=== PATIENT | female | born 1990 | race African-American/Black ===

== ENCOUNTER 2018-05-16 01:10 | Emergency (ER) | payer BC, SELFPAY ==
[2018-05-16] MEDS ORDERED: Ondansetron ODT 4 MG TAB ONE (01:46)
[2018-05-16] MEDS ORDERED: Lidocaine Viscous Sol 2% 15 ml UD Cup ONE (01:57)
[2018-05-16] MEDS ORDERED: Mag-Al 1200 mg/1200 mg/30 ML UDCUP ONE (01:57)
[2018-05-16 03:03] LABS: Bilirubin Negative (Negative); Blood, Urine Negative (Negative); Clarity CLEAR (Clear); Glucose, Urine (Dipstick) Negative (Negative); Leukocyte Negative (Negative); Nitrite Negative (Negative); Protein, Urine (Dipstick) Negative (Neg-Trace); Specific Gravity, Urine 1.027 (1.002-1.036)
[2018-05-16 03:07] LABS: Pregnancy Test - Urine (BHCG) POSITIVE (Negative); Pregu Control Background? CLEAR/WHITE (CLR/WHITE); Pregu Control Bar Appear? YES (CONTROL BAR); Specific Gravity 1.027 (1.002-1.036)
== END 2018-05-16 03:58 | disposition home or self-care (01) ==
LOC: ERS 01:10
DX: O21.9 Vomiting of pregnancy, unspecified (principal); Z3A.00 Weeks of gestation of pregnancy not specified
CPT/HCPCS: 81003; 81025; 99284; Q0162

== ENCOUNTER 2018-05-20 10:40 | Emergency (ER) | payer SELFPAY ==
[2018-05-20 11:38] LABS: #Basophils 0.1 thou/uL (0.0-0.2); #Eosinphils 0.2 thou/uL (0.0-0.7); #Lymphocytes 2.5 thou/uL (1.20-3.40); #Neutrophils 3.5 thou/uL (1.40-6.50); %Basophils 0.9 % (0.0-1.0); %Eosinophils 2.3 % (0.0-10.0); %Lymphocytes 34.7 % (21.0-51.0); %Monocytes 13.3 % (0.0-10.0); %Neutrophils 48.8 % (42.0-75.0); Hemoglobin 10.8 g/dL (12.0-16.0); Mean Corpuscular HGB CONC 31.1 g/dL (32.0-36.0); Mean Corpuscular Hemoglobin 26.6 pg (27.0-31.0); Mean Corpuscular Volume 85.5 fL (78.0-98.0); Mean Platelet Volume 8.5 fL (7.4-10.4); Platelet Count 320 thou/uL (130-400); RBC Distribution Width 12.5 % (11.5-14.5); Red Blood Cell (RBC) Count 4.05 mill/uL (4.20-5.40); White Blood Cell (WBC) Count 7.2 thou/uL (4.8-10.8)
--- NOTE | 2018-05-20 13:38 | ULT ---
ULTRASOUND PELVIC ULTRASOUND TRANSVAGINAL DOPPLER DUPLEX: DATE: 05/20/2018. HISTORY: A 27-year-old female with pelvic pain. TECHNIQUE: Transabdominal transducer used to evaluate intrapelvic contents using the urinary bladder as an acous tic window. Endovaginal transducer used to visualize intrapelvic contents in greater detail. Color fl ow Doppler and Pulsed Doppler spectral waveform analysis of ovaries. FINDINGS: Intrapelvic contents are very poorly visualized on the transabdominal images due to body habitus. Endometrial stripe is measured as 6.5 mm (0.65 cm) on transvaginal images, but the margins are indist inct. This indistinctness could be due to technical reasons, or could represent adenomyosis. No int rauterine gestational sac is visualized. No ectopic is visualized, but lack of visualizati on on ultrasound does not rule it out. The right ovary is measured as 4 x 2 x 2.5 cm. Flow by Doppler could not be demonstrated in the right ovary due to its position. The left ovary measures 3 x 2 x 2 cm. Flow demonstrated in the left ovary by Doppler. No ovarian cyst identified. No free fluid in the cul-de-sac. There is an approximately 5.5 x 5 x 4.5 cm mass with heterogeneous, intermediate to low echogenicity at the right side of the uterine fundus which is probably a leiomyoma. IMPRESSION: 1. No intrauterine gestation visualized. 2. Large right uterine mass, probably a fibroid (leiomyoma). 3. Indistinctness of endometrial stripe margins could be due to technical reasons, or could represen t adenomyosis. Clinical correlation recommended. JAKE Cobos POS: [facility]
== END 2018-05-20 14:10 | disposition home or self-care (01) ==
LOC: ERS 10:40
DX: O20.0 Threatened abortion (principal); Z3A.08 8 weeks gestation of pregnancy
CPT/HCPCS: 36415; 76856; 84702; 85025

== ENCOUNTER 2018-05-23 03:45 | Emergency (ER) | payer SELFPAY ==
[2018-05-23 04:18] LABS: BHCG - Serum POSITIVE (NEGATIVE); Pregs Control Background? CLEAR/WHITE (CLR/WHITE); Pregs Control Bar Appear? YES (CONTROL BAR)
== END 2018-05-23 05:10 | disposition home or self-care (01) ==
LOC: ERS 03:45
DX: O03.9 Complete or unspecified spontaneous abortion without complication (principal)
CPT/HCPCS: 36415; 84702; 84703; 99283

== ENCOUNTER 2018-07-04 16:36 | Emergency (ER) | payer MEDICAID | END 2018-07-04 17:22 | disposition home or self-care (01) | LOC: ERS 16:36 | DX: Z76.5 Malingerer [conscious simulation] (principal) | CPT/HCPCS: 99281 ==

== ENCOUNTER 2018-09-21 02:25 | Emergency (ER) | payer OTHER ==
[2018-09-21] MEDS ORDERED: cefTRIAXone\\ROCEPHIN 250 MG VIAL ONE (03:33)
[2018-09-21] MEDS ORDERED: Azithromycin 250 MG TAB ONE ×2 (03:33→03:36)
[2018-09-21] MEDS ORDERED: Lidocaine 1% PF 5 ML VIAL ONE (03:33)
[2018-09-21 03:57] LABS: Pregnancy Test - Urine (BHCG) Negative (Negative); Pregu Control Background? CLEAR/WHITE (CLR/WHITE); Pregu Control Bar Appear? YES (CONTROL BAR); Specific Gravity 1.029 (1.002-1.036)
[2018-09-21 04:00] LABS: Bilirubin Negative (Negative); Blood, Urine Negative (Negative); Clarity Clear (Clear); Glucose, Urine (Dipstick) Normal (Negative); Leukocyte Negative Leu/uL (Negative); Nitrite Negative (Negative); Protein, Urine (Dipstick) 10 mg/dL (Neg-Trace); Urobilinogen Normal mg/dL (Less than 2)
[2018-09-21 22:49] LABS: Chlamydia by PCR Not Detected (NotDetected); GC by PCR Not Detected (NotDetected)
== END 2018-09-21 04:19 | disposition home or self-care (01) ==
LOC: ERS 02:25
DX: N72 Inflammatory disease of cervix uteri (principal); F32.9 Major depressive disorder, single episode, unspecified
CPT/HCPCS: 81003; 81025; 87480; 87491; 87510; 87591; 87660; 96372; 99284; J0696; J2001

== ENCOUNTER 2018-10-01 03:18 | Emergency (ER) | payer OTHER | END 2018-10-01 04:10 | disposition home or self-care (01) | LOC: ERS 03:18 | DX: K59.00 Constipation, unspecified (principal); F32.9 Major depressive disorder, single episode, unspecified | CPT/HCPCS: 99282 ==

== ENCOUNTER 2019-01-09 03:45 | Emergency (ER) | payer OTHER ==
[2019-01-09] MEDS ORDERED: Ketorolac Tromethamine 60 MG/2 ML VIAL ONE ×2 (04:22→04:38)
[2019-01-09 04:52] LABS: Bilirubin Negative (Negative); Blood, Urine Large (Negative); Glucose, Urine (Dipstick) Negative (Negative); Leukocyte Negative (Negative); Nitrite Negative (Negative); Protein, Urine (Dipstick) 30 mg/dL (Neg-Trace)
[2019-01-09 04:55] LABS: Clarity Turbid (Clear)
[2019-01-09 05:03] LABS: RBC/HPF Greater than 50 HPF (0-3); Squamous Epithelial None Seen HPF (0-3)
[2019-01-09 05:09] LABS: BHCG - Serum Negative (NEGATIVE); Pregs Control Background? CLEAR/WHITE (CLR/WHITE); Pregs Control Bar Appear? YES (CONTROL BAR)
[2019-01-09 05:16] LABS: Hemoglobin 11.4 g/dL (12.0-16.0); Mean Corpuscular HGB CONC 32.1 g/dL (32.0-36.0); Mean Corpuscular Hemoglobin 27.7 pg (27.0-31.0); Mean Corpuscular Volume 86.3 fL (78.0-98.0); Mean Platelet Volume 8.4 fL (7.4-10.4); Platelet Count 281 thou/uL (130-400); Red Blood Cell (RBC) Count 4.11 mill/uL (4.20-5.40); White Blood Cell (WBC) Count 9.3 thou/uL (4.8-10.8)
[2019-01-09 05:18] LABS: ALT (SGPT) 11 U/L (8-55); AST (SGOT) 14 U/L (5-34); Albumin 3.9 g/dL (3.5-5.0); Alkaline Phosphatase 63 U/L (40-110); Anion Gap 8 mmol/L (10-20); BUN (Urea Nitrogen) 11 mg/dL (7.0-18.7); Bilirubin, Total 0.4 mg/dL (0.2-1.2); Calc. Creatinine Clearance 0 mL/min (70-130); Calcium 8.8 mg/dL (7.8-10.44); Carbon Dioxide 29 mmol/L (22-29); Chloride 102 mmol/L (98-107); Estimated GFR-MDRD Greater than 90; Globulin 3.4 g/dL (2.4-3.5); Glucose 79 mg/dL (70-105); Lipase 22 U/L (8-78); Potassium 3.7 mmol/L (3.5-5.1); Protein, Total 7.3 g/dL (6.0-8.3); Sodium 135 mmol/L (136-145)
[2019-01-09 05:35] LABS: Band 1 % (5-11); Eosinophils 1 % (0-10); Lymphocytes 39 % (21-51); MDiff Complete? YES; Monocytes 8 % (0-10); Neutrophil 51 % (42-75); Platelet Morphology Comment Appears Adequate; RBC Morphology Normal
== END 2019-01-09 05:40 | disposition home or self-care (01) ==
LOC: ERS 03:45
DX: N93.8 Other specified abnormal uterine and vaginal bleeding (principal); F32.9 Major depressive disorder, single episode, unspecified
CPT/HCPCS: 36415; 80053; 81003; 81015; 83690; 84703; 85025; 96372; 99284; J1885

== ENCOUNTER 2019-02-14 23:06 | Emergency (ER) | payer OTHER ==
[2019-02-14] MEDS ORDERED: Ondansetron ODT 8 MG TAB ONE (23:28)
[2019-02-14 23:47] LABS: BHCG - Serum Negative (NEGATIVE); Pregs Control Background? CLEAR/WHITE (CLR/WHITE); Pregs Control Bar Appear? YES (CONTROL BAR)
== END 2019-02-15 00:05 | disposition home or self-care (01) ==
LOC: ERS 23:06
DX: R11.0 Nausea (principal); R42 Dizziness and giddiness; R61 Generalized hyperhidrosis; F32.9 Major depressive disorder, single episode, unspecified
CPT/HCPCS: 36415; 84703; 99284

== ENCOUNTER 2019-09-05 21:11 | Emergency (ER) | payer OTHER, SELFPAY ==
[2019-09-05 21:54] LABS: #Eosinphils 0.1 thou/uL (0.0-0.7); #Lymphocytes 1.9 thou/uL (1.20-3.40); #Monocytes 0.6 thou/uL (0.11-0.59); #Neutrophils 6.3 thou/uL (1.40-6.50); %Basophils 0.1 % (0.0-1.0); %Eosinophils 0.9 % (0.0-10.0); %Lymphocytes 21.4 % (21.0-51.0); %Monocytes 6.6 % (0.0-10.0); %Neutrophils 71.1 % (42.0-75.0); Hemoglobin 11.8 g/dL (12.0-16.0); Mean Corpuscular Hemoglobin 27.7 pg (27.0-31.0); Mean Corpuscular Volume 89.3 fL (78.0-98.0); Mean Platelet Volume 8.6 fL (7.4-10.4); Platelet Count 259 thou/uL (130-400); RBC Distribution Width 11.9 % (11.5-14.5); Red Blood Cell (RBC) Count 4.25 mill/uL (4.20-5.40); White Blood Cell (WBC) Count 8.8 thou/uL (4.8-10.8)
[2019-09-05 21:58] LABS: Pregnancy Test - Urine (BHCG) Negative (Negative); Pregu Control Background? CLEAR/WHITE (CLR/WHITE); Pregu Control Bar Appear? YES (CONTROL BAR); Specific Gravity 1.015 (1.002-1.036)
[2019-09-05 22:01] LABS: Bacteria/HPF 3+ HPF (None Seen); Bilirubin Negative (Negative); Blood, Urine 2+ (Negative); Clarity Turbid (Clear); Glucose, Urine (Dipstick) Normal (Negative); Ketone, Urine Negative (Negative); Leukocyte 500 Leu/uL (Negative); Nitrite Negative (Negative); Protein, Urine (Dipstick) 50 mg/dL (Neg-Trace); RBC/HPF Greater than 50 HPF (0-3); Specific Gravity, Urine 1.015 (1.002-1.036); Urobilinogen Normal mg/dL (Less than 2); WBC/HPF Greater than 50 HPF (0-3)
[2019-09-05 22:12] LABS: ALT (SGPT) 12 U/L (8-55); AST (SGOT) 16 U/L (5-34); Albumin 3.9 g/dL (3.5-5.0); Alkaline Phosphatase 70 U/L (40-110); Anion Gap 11 mmol/L (10-20); BUN (Urea Nitrogen) 9 mg/dL (7.0-18.7); Bilirubin, Total 0.3 mg/dL (0.2-1.2); Calc. Creatinine Clearance 0 mL/min (70-130); Calcium 8.6 mg/dL (7.8-10.44); Carbon Dioxide 26 mmol/L (22-29); Chloride 103 mmol/L (98-107); Estimated GFR-MDRD Greater than 90; Globulin 3.3 g/dL (2.4-3.5); Glucose 79 mg/dL (70-105); Potassium 3.8 mmol/L (3.5-5.1); Protein, Total 7.2 g/dL (6.0-8.3); Sodium 136 mmol/L (136-145)
== END 2019-09-05 23:54 | disposition home or self-care (01) ==
LOC: ERS 21:11
DX: N39.0 Urinary tract infection, site not specified (principal); F32.9 Major depressive disorder, single episode, unspecified; F17.210 Nicotine dependence, cigarettes, uncomplicated
CPT/HCPCS: 36600; 80053; 81003; 81015; 81025; 85025; 99284

== ENCOUNTER 2019-10-27 15:24 | Emergency (ER) | payer SELFPAY | END 2019-10-27 16:29 | disposition left against medical advice (07) | LOC: ERS 15:24 | DX: Z53.21 Procedure and treatment not carried out due to patient leaving prior to being seen by health care provider (principal) ==

== ENCOUNTER 2019-11-05 06:01 | Emergency (ER) | payer MEDICAID ==
[2019-11-05] MEDS ORDERED: Ondansetron ODT 8 MG TAB ONE (06:43)
--- NOTE | 2019-11-05 10:29 | ULT ---
PELVIC ULTRASOUND: Date: 11/05/2019 COMPARISON: 11/02/2019. HISTORY: Follow-up first trimester ultrasound. No vaginal bleeding. TECHNIQUE: Multiplanar Browning scale and color Doppler images were obtained in a transabdominal and transvaginal pe lvic ultrasound. Spectral analysis of the Doppler waveforms of the ovaries were performed. FINDINGS: There are multiple fibroids in the uterus. The largest is seen in the fundus measuring 6.3 cm in size . There appears to be a gestational sac in the fundus. There appears to be a pole within the ge stational sac. There is possibly a yolk sac. [place]-rump length of the pole is 0.87 cm, which es timates a gestational age of 6 weeks and 6 days. No heart rate is able to be detected at this t neena. There is a small amount of fluid adjacent to the gestational sac which could represent a small a mount of subchorionic hemorrhage. No free fluid is seen in the pelvis. Both ovaries are normal in size and appearance and demonstrate n ormal internal flow. A corpus luteum cyst is seen in the left ovary measuring 2.4 cm in size. IMPRESSION: 1. Likely early intrauterine . Estimated age is 6 weeks and 6 days. A determination of viab ility is not obtained on this examination, but this may be secondary to a very early gestational age. Continued follow-up is recommended. 2. Fibroid uterus. POS: [facility]
== END 2019-11-05 10:10 | disposition home or self-care (01) ==
LOC: ERS 06:01
DX: O99.89 Other specified diseases and conditions complicating pregnancy, childbirth and the puerperium (principal); R10.30 Lower abdominal pain, unspecified; Z3A.01 Less than 8 weeks gestation of pregnancy
CPT/HCPCS: 36415; 76856; 84702; Q0162

== ENCOUNTER 2019-11-11 22:17 | Emergency (ER) | payer MEDICAID | END 2019-11-12 01:19 | disposition home or self-care (01) | LOC: ERS 22:17 | DX: O99.891 Other specified diseases and conditions complicating pregnancy (principal); R10.30 Lower abdominal pain, unspecified; Z3A.01 Less than 8 weeks gestation of pregnancy | CPT/HCPCS: 36415; 84702; 99284 ==